=== PATIENT | male | born 1960 | race Caucasian/White ===

== ENCOUNTER → 2022-05-16 | Outpatient (CLI) | payer SELFPAY ==
--- NOTE | 2022-05-16 13:23 | US ---
EXAMINATION TYPE: US venous doppler duplex UE LT DATE OF EXAM: 05/16/2022 COMPARISON: NONE CLINICAL HISTORY: R79.1 ABN COAGULATION PROFILE. SIDE PERFORMED: Left Left Arm: Negative for DVT IJV, subclavian, axilla, brachial, basilic, cephalic, radial, and ulnar veins interrogated. Grayscale, color doppler, spectral doppler imaging performed of the deep veins of the upper extremiti es. There is normal flow, compressibility and vascular waveforms. IMPRESSION: No evidence for deep vein thrombosis of the left upper extremity.
== END | disposition home or self-care (01) ==
LOC: RADUSWWP 12:47
PROVIDERS: ATTEND Family Medicine
DX: R79.1 Abnormal coagulation profile (principal)